=== PATIENT | female | born 1970 | race Caucasian/White ===

== ENCOUNTER 2018-03-27 14:19 | Outpatient (CLI) | payer OTHER | END 2018-03-27 14:21 | disposition home or self-care (01) | LOC: SONOGRAMA 14:19 → MAMO-SONO 03-28 07:15 | DX: K80.00 Calculus of gallbladder with acute cholecystitis without obstruction (principal) ==

== ENCOUNTER 2018-04-03 15:00 | Emergency (ER) | payer OTHER ==
[~2018-04-03] VITALS: Ht 157.5 cm; Wt 70.3 kg
[2018-04-03] MEDS ORDERED: DICY20TA (15:34)
== END 2018-04-03 22:53 | disposition home or self-care (01) ==
LOC: ER 15:00
DX: K80.50 Calculus of bile duct without cholangitis or cholecystitis without obstruction (principal); R10.11 Right upper quadrant pain

== ENCOUNTER 2023-05-11 11:45 | Inpatient (IN) | payer OTHER ==
[~2023-05-11] VITALS: Ht 152.4 cm; Wt 70.3 kg
[~2023-05-11 11:45] MED LIST: DICY20TA
[2023-05-11] MEDS ORDERED: TOPROL XL50 M1 PO (12:54)
[2023-05-11] MEDS ORDERED: ATACAND16 MG PO (12:55)
[2023-05-17] MEDS ORDERED: POVIDONE-IODINE 118 ML BOTT TOP ONE (10:30)
[2023-05-17] MEDS ORDERED: CEFAZOLIN SODIUM 1,000 MG VIAL IV ONE (10:30)
[2023-05-17] MEDS ORDERED: HEMOSTATIC MATRIX 1 KIT KIT TOP ONE ×4 (10:52→11:30)
[2023-05-17] MEDS ORDERED: SODIUM CHLORIDE 0.45 % 1,000 ML IV SCH (12:15)
[2023-05-17] MEDS ORDERED: MORPHINE SULFATE 4 MG/ML CARTRIDGE IV PRN (12:15)
[2023-05-17] MEDS ORDERED: ONDANSETRON HCL 2 MG/ML VIAL IV PRN (12:15)
[2023-05-17] MEDS ORDERED: ENOXAPARIN SODIUM 40 MG/0.4 ML SYRINGE SUBCUTANEO SCH (17:00)
[2023-05-17] MEDS ORDERED: CEFOXITIN SODIUM 2,000 MG VIAL IV SCH (17:00)
[2023-05-17] MEDS ORDERED: ENOXAPARIN SODIUM 40 MG/0.4 ML SYRINGE SUBCUTANEO ONE ×2 (18:00→18:02)
[2023-05-17] MEDS ORDERED: CEFOXITIN SODIUM 2,000 MG VIAL IV ONE (18:00)
[2023-05-17 19:13] LABS: HEMOGLOBIN 11.2 g/dL (12.0-15.00); MEAN CELL VOLUME 84.2 fL (80.00-100.00); MEAN CORPUSCULAR HEMOGLOBIN 27.8 pg (27.00-32.0); PLATELET COUNT 203 K/uL (150-450); RED BLOOD COUNT 4.04 M/uL (4.00-6.00); RED CELL DISTRIBUTION WIDTH 14.2 % (11.5-14.5)
[2023-05-17] MEDS ORDERED: KETOROLAC TROMETHAMINE 30 MG VIAL IV SCH (21:00)
[2023-05-18] MEDS ORDERED: KETOROLAC TROMETHAMINE 30 MG VIAL IV SCH (10:00)
[2023-05-18] MEDS ORDERED: ACETAMINOPHEN WITH CODEINE 1 UDTAB TABLET PO PRN (11:30)
[2023-05-18] MEDS ORDERED: RINGERS SOLUTION,LACTATED 1,000 ML IV SCH (11:30)
[2023-05-18] MEDS ORDERED: ACETAMINOPHEN 500 MG GEL..CAP PO STA (16:56)
[2023-05-18 18:45] LABS: HEMATOCRIT 29.4 % (36.0-45.00); HEMOGLOBIN 9.5 g/dL (12.0-15.00); MEAN CELL VOLUME 85.5 fL (80.00-100.00); MEAN CORPUSCULAR HEMOGLOBIN 27.7 pg (27.00-32.0); MEAN CORPUSCULAR HGB CONC 32.4 g/dl (32.0-36.0); PLATELET COUNT 191 K/uL (150-450); RED BLOOD COUNT 3.44 M/uL (4.00-6.00); RED CELL DISTRIBUTION WIDTH 13.7 % (11.5-14.5)
[2023-05-18 19:07] LABS: ALBUMIN 2.9 gm/dL (3.4-5.0); BILIRUBIN TOTAL 0.59 mg/dL (0.3-1.2); CALCIUM 8.7 mg/dL (8.5-10.1); CREATININE SERUM 0.64 mg/dL (0.55-1.02); GFR 97.83; GLOBULINA 2.6 G/DL (2.4-3.5); POTASSIUM 3.99 mEq/L (3.5-5.1); TOTAL PROTEIN 5.5 gm/dL (6.4-8.2)
[2023-05-19] MEDS ORDERED: ENOXAPARIN SODIUM 40 MG/0.4 ML SYRINGE SUBCUTANEO SCH (09:00)
[2023-05-19] MEDS ORDERED: SOD FERRIC GLUC COMPLX/SUCROSE 62.5 MG/5 ML AMPUL IV SCH (10:34)
[2023-05-19] MEDS ORDERED: MINERAL OIL 30 ML BLIST.PACK PO ONE (11:00)
[2023-05-19] MEDS ORDERED: MAGNESIUM HYDROXIDE 30 ML BLIST.PACK PO ONE (11:00)
[2023-05-19] MEDS ORDERED: BISACODYL 5 MG TABLET.EC PO ONE (11:00)
[2023-05-20] MEDS ORDERED: FUSION PLUS CA1 EACH PO (10:55)
[2023-05-20] MEDS ORDERED: COLACE100 MG PO (10:55)
[2023-05-20] MEDS ORDERED: TRAM1TAB98 PO (10:56)
[2023-05-20] MEDS ORDERED: NAPROXEN SODIU500 M1 PO (10:57)
[2023-05-20] MEDS ORDERED: SILVADENE20 GM TOP (10:58)
== END 2023-05-20 11:20 | disposition home or self-care (01) | DRG 743 ==
LOC: O/R 05-17 06:52 → OB/GYN 05-17 06:52 → O/R 05-18 11:50 → OB/GYN 05-18 11:51
PROVIDERS: ADMIT Obstetrics & Gynecology; ATTEND Obstetrics & Gynecology
PROC: 0DNW0ZZ Release Peritoneum, Open Approach (ICD-10-PCS; 2023-05-17)
PROC: 0UT97ZL Resection of Uterus, Supracervical, Via Natural or Artificial Opening (ICD-10-PCS; principal; 2023-05-17 13:00)
DX: D25.1 Intramural leiomyoma of uterus (principal); Z20.822 Contact with and (suspected) exposure to COVID-19

== ENCOUNTER 2023-11-16 13:19 | Outpatient (CLI) | payer OTHER ==
[~2023-11-16 13:19] MED LIST changes: +ATACAND16 MG PO; +COLACE100 MG PO; +FUSION PLUS CA1 EACH PO; +NAPROXEN SODIU500 M1 PO; +SILVADENE20 GM TOP; +TOPROL XL50 M1 PO; +TRAM1TAB98 PO
== END 2023-11-16 13:20 | disposition home or self-care (01) ==
LOC: NUCLEAR 13:19
PROVIDERS: ATTEND Internal Medicine Cardiovascular Disease
DX: I27.82 Chronic pulmonary embolism (principal)

== ENCOUNTER 2023-11-16 14:17 | Outpatient (CLI) | payer OTHER | END 2023-11-16 14:23 | disposition home or self-care (01) | LOC: RAD 14:17 | PROVIDERS: ATTEND General Practice | DX: M25.562 Pain in left knee (principal); M25.552 Pain in left hip ==